=== PATIENT | male | born 1970 | race Caucasian/White ===

== ENCOUNTER 2024-05-07 09:56 | Emergency (ER) | payer OTHER ==
[~2024-05-07] VITALS: Ht 172.7 cm; Wt 98.4 kg
[2024-05-07] MEDS ORDERED: PROPRANOLOL HCL10 MG PO (10:11)
[2024-05-07] MEDS ORDERED: ASPIRIN 81 MG CHEW PO ONE (10:15)
[2024-05-07 10:23] LABS: HEMATOCRIT 38.8 % (35.0-50.0); HEMOGLOBIN 13.1 g/dL (12.0-18.0); MCH 30.4 (27-36); MCHC 33.8 g/dl (30-36); PLATELET COUNT 191 K/uL (140-440); RBC 4.31 M/ul (4.3-5.7); RDW 13.3 (10.5-15.0)
[2024-05-07 10:39] LABS: EOSINOPHILS, MANUAL DIFF 3; LYMPHOCYTES, MANUAL DIFF 26; MONOCYTES, MANUAL DIFF 11; NEUTROPHILS, MANUAL DIFF 60
[2024-05-07 10:41] LABS: ALBUMIN 3.3 g/dL (3.4-5.0); ALBUMIN/GLOBULIN RATIO 0.83 (1.1-2.4); ANION GAP 12.5 (7-21); BILIRUBIN, TOTAL 0.6 ng/dL (0.2-1.0); BUN/CREATININE RATIO 39.55 (6.0-28.6); CALCIUM 8.8 mg/dL (8.5-10.1); CREATININE, SERUM 1.34 mg/dL (0.70-1.30); MAGNESIUM 2.1 mg/dL (1.8-2.4); POTASSIUM 4.5 mmol/L (3.5-5.1); PROTEIN, TOTAL 7.3 g/dL (6.4-8.2)
[2024-05-07] MEDS ORDERED: SODIUM CHLORIDE 0.9% 1,000 ML IV PRN (10:45)
[2024-05-07 13:26] VITALS: BP 109/85
--- NOTE | 2024-05-09 21:13 | EKG ---
[facility] [address] [facility] [place], [place] [address] Signed Normal sinus rhythm Minimal voltage criteria for LVH, may be normal variant ( R in aVL ) Borderline ECG No previous ECGs available Confirmed by Steven Boyd DO ([id number]) on 05/09/2024 9:13:45 PM Electronically Signed By: STEVEN BOYD DO 05/09/242112 PATIENT NAME: ENRIKE COYLE Electrocardiogram DATE OF : 74 PHYSICIAN: STEVEN BOYD DO REPORT #: [id number] REPORT IS CONFIDENTIAL AND NOT TO BE RELEASED WITHOUT AUTHORIZATION
== END 2024-05-07 13:36 | disposition home or self-care (01) ==
LOC: ED 09:56
PROVIDERS: Emergency Medicine
DX: R55 Syncope and collapse (principal); R07.89 Other chest pain; E86.0 Dehydration; I10 Essential (primary) hypertension; Z79.899 Other long term (current) drug therapy
CPT/HCPCS: 36415; 71045; 80053; 83735; 84484; 85025; 93005; 93010; 96360; 96361; 99285-25; A9270; J7030